=== PATIENT | male | born 2000 | race Caucasian/White ===

== ENCOUNTER 2020-08-14 19:41 | Emergency (ER) | payer OTHER ==
[~2020-08-14] VITALS: Ht 180.3 cm; Wt 120.2 kg
[2020-08-14] MEDS ORDERED: TDAP [DIPH/PERTUSSIS/TET] 0.5 ML VIAL IM ONE ×2 (20:00→20:01)
--- NOTE | 2020-08-14 20:42 | NUR ---
Patient discharged to home in stable condition. Written and verbal after care instructions given. Patient verbalizes understanding of instruction.
[2020-08-14 20:43] VITALS: BP 129/78
== END 2020-08-14 20:44 | disposition home or self-care (01) ==
LOC: ER 19:43
DX: S00.83XA Contusion of other part of head, initial encounter (principal); S00.33XA Contusion of nose, initial encounter; S00.12XA Contusion of left eyelid and periocular area, initial encounter; S50.311A Abrasion of right elbow, initial encounter; S60.511A Abrasion of right hand, initial encounter; W05.1XXA Fall from non-moving nonmotorized scooter, initial encounter; Y93.89 Activity, other specified; Y92.89 Other specified places as the place of occurrence of the external cause; Y99.8 Other external cause status
CPT/HCPCS: 73130; 90471; 90715; 99283; A6403

== ENCOUNTER 2020-09-15 17:45 | Emergency (ER) | payer OTHER ==
[~2020-09-15] VITALS: Ht 180.3 cm; Wt 113.4 kg
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
[2020-09-15] MEDS ORDERED: CALCIUM CARBONATE 500 MG TAB.CHEW ONE (18:20)
[2020-09-15] MEDS ORDERED: IBUPROFEN 600 MG TABLET ONE (18:21)
--- NOTE | 2020-09-15 18:22 | NUR ---
tums and PO motrin given as ordered
[2020-09-15] MEDS ORDERED: IBUPROFEN 600 MG TABLET PO ONE (18:30)
[2020-09-15] MEDS ORDERED: CALCIUM CARBONATE 500 MG TAB.CHEW PO ONE (18:30)
[2020-09-15] MEDS ORDERED: BACI3.5O23 OP (19:22)
[2020-09-15] MEDS ORDERED: IBUP-1955 PO (19:22)
--- NOTE | 2020-09-15 19:48 | NUR ---
Patient discharged to home in stable condition. Written and verbal after care instructions given. Patient verbalizes understanding of instruction.Pt ambulatory with a steady gait
[2020-09-15 19:49] VITALS: BP 140/98
== END 2020-09-15 19:49 | disposition home or self-care (01) ==
LOC: ER 17:47
DX: S92.355A Nondisplaced fracture of fifth metatarsal bone, left foot, initial encounter for closed fracture (principal); S80.212A Abrasion, left knee, initial encounter; S50.811A Abrasion of right forearm, initial encounter; Z79.899 Other long term (current) drug therapy; V19.9XXA Pedal cyclist (driver) (passenger) injured in unspecified traffic accident, initial encounter; Y93.I9 Activity, other involving external motion; Y92.89 Other specified places as the place of occurrence of the external cause; Y99.8 Other external cause status
CPT/HCPCS: 29515; 73564; 73630; 99284; A6403